=== PATIENT | female | born 1950 | race Caucasian/White ===

== ENCOUNTER 2021-12-31 07:58 | Observation (INO) ==
--- NOTE | 2021-12-10 13:52 | History & Physical Report ---
Date of Service December 10, 2021 date of surgery: 12/31/21 Procedure: Left Total Knee Arthroplasty Surgeon: Gabriel Almodovar Assessment & Plan (1) Arthritis of knee, left: Plan: Risks and benefits of procedure discussed in detail today, patient would like to proceed with a left total knee replacement at [facility] as scheduled. will obtain medical clearance from Dr Owusu and cardiac clearance from Dr Asencio prior to surgery as well as obtain PATs at [facility]. Will place on ASA 81mg po bid x 1 month post op, f/u 2 weeks post op for routine post-operative care and x-ray, sooner if having any problems. will make arrangements for HHPT at the time of discharge. At this point in time, has failed conservative measures and would like to proceed with surgical intervention. she is interested in OPJ if she is cleared by anesthesia. will schedule for Iovera treatment prior to the surgery. The risks and benefits have been discussed including, but not limited to, risk of infection, nerve injury, stiffness, loss of motion, failure to improve, etc. Reasonable outcomes and options of treatment were discussed. An explanation of appropriate alternatives to the procedure that may be advantageous were discussed and their risks and benefits, as well as the risks and benefits of not proceeding with treatment. I offered to answer any additional inquiries concerning the treatment involved. All the patient's questions were answered. The patient is agreeable, understanding of the treatment plan and alternatives, and wishes to proceed with the treatment plan. History of Present Illness Chief Complaint: left knee pain Primary Care Provider: MARY Bryan Nuha is a 71 year old female who complains of left knee pain, presents for pre-op evaluation prior to a left total knee replacement by Dr Almodovar at [facility]. She complains of pain, decreased range of motion, instability and stiffness in her left knee. Currently the patient states that the symptoms are moderate- severe and rated as 6/10. The pain is described as aching, sharp and throbbing. The symptoms are aggravated by ascending stairs, daily activities, first steps while awake walking. She is unable to take NSAIDs due to history of polycystic kidney disease. she has been treated with previous visco injections in the past without much relief. She had prior scope performed in 2016. Allergies Allergy/AdvReac Type Severity Reaction Status Date / Time NSAIDS (Non-Steroidal AdvReac poycystic Verified 12/13/21 16:07 Anti-Inflamma kidneys Home Medications Medication Instructions Recorded Confirmed Type calcium polycarbophil 625 mg 625 mg PO BID 08/11/21 08/11/21 History tablet (FiberCon) casanthranol-docusate sodium 30 1 cap PO QPM 08/11/21 08/11/21 History mg-100 mg capsule cholecalciferol (vitamin D3) 50 50 mcg PO BID 08/11/21 08/11/21 History mcg (2,000 unit) tablet (Vitamin D3) colesevelam 625 mg tablet 625 mg PO BID 08/11/21 08/11/21 History duloxetine 20 mg capsule,delayed 20 mg PO QPM 08/11/21 08/11/21 History release echinacea 400 mg capsule 400 mg PO QPM 08/11/21 08/11/21 History lactobacillus combo no.6 4 billion 4 cell PO QPM 08/11/21 08/11/21 History cell tablet omeprazole 20 mg tablet,delayed 20 mg PO QAM 08/11/21 08/11/21 History release propranolol 20 mg tablet 20 mg PO BID 08/11/21 08/11/21 History bempedoic acid 180 mg tablet 180 mg QAM 08/19/21 08/19/21 History (Nexletol) Past Med/Surg History Medical History Chronic sinusitis Ongoing x months - stable CVA (cerebral vascular accident) Questionable Incidental finding on imaging per patient Per cardio records "possible right putamen CVA" GERD (gastroesophageal reflux disease) Controlled and stable History of migraine Stable HLD (hyperlipidemia) HTN (hypertension) IBS (irritable bowel syndrome) No recent flares Osteoarthritis Polycystic kidney disease Follows with Dr. Dove in [place], [place] Stable per patient PONV (postoperative nausea and vomiting) Surgical History History of Achilles tendon repair BL History of arthroscopy of right knee History of cervical spinal surgery x 2; ROM WNL History of cholecystectomy History of colonoscopy History of esophagogastroduodenoscopy (EGD) History of lumbar fusion History of shoulder surgery Social History Smoking Status: Never smoker Second Hand Exposure: Yes (hx); Hx Alcohol Use: No Hx Substance Use: No Preferred Language: Kittitian Communication Ability: Effective Glass Etcher Required: No Beliefs That Will Affect Care: None Current Living Situation: Spouse Feels Safe at Home: Yes Assistive Devices: None Review of Systems Review of Systems: All systems reviewed & are unremarkable except as noted in HPI & below Constitutional: no fever, no chills and no sweats Respiratory: no cough and no dyspnea Cardiovascular: no chest pain, no dyspnea and no orthopnea Gastrointestinal: no abdominal pain, no nausea and no vomiting Musculoskeletal: as per Subjective / HPI Physical Exam Physical Exam: HT: 5'3" WT: 188lb BP: 152/83 Pulse: 62 Constitutional: WD/WN, vitals as above no acute distress Respiratory: normal respiratory effort, lungs clear to auscultation no respiratory distress, no labored breathing and does not use accessory muscles Cardiovascular: RRR, no murmur, no edema Gastrointestinal (Abdomen): normal bowel sounds, soft, nontender, no hepatosplenomegaly Musculoskeletal: Knee: + knee abnormal to inspection (LEFT KNEE: ), + effusion (+1 effusion), + surgical incision (well healed portals), + limited ROM of knee (ROM 0/3/110), + knee ROM with crepitation, + joint line tenderness (medial joint line) and + Michael's sign positive; no deformity, no skin erythema, no ecchymosis, no valgus laxity, no varus laxity, anterior drawer test negative, Aaron's sign negative and pivot shift test negative Results & Data Results & Data ([facility]) Diagnostic Findings Left Knee X-ray: left knee series confirm degenerative changes to the left knee, greatest medial compartments and patellofemoral joint, showing joint space narrowing, osteophyte formation and subchondral sclerosis. no acute bony pathology noted.
--- NOTE | 2021-12-26 13:52 | Anesthesiology Consultation ---
Date of Service December 26, 2021 Assessment & Plan (1) Encounter for pre-operative examination: Chart Review Chart Review: Acceptable Risk for Surgery and Patient NOT seen in Pre Admission Testing Consults Requested none History Surgery Operation Date: 12/31/21 09:50 Proposed Procedures p Left Total Knee Arthroplasty - Gabriel Almodovar DO Height/Weight Height: 5 ft 3 in Weight: 83.915 kg Allergies Allergy/AdvReac Type Severity Reaction Status Date / Time lisinopril AdvReac Unknown Cough Verified 12/26/21 11:52 NSAIDS (Non-Steroidal AdvReac Unknown poycystic Verified 12/26/21 11:51 Anti-Inflamma kidneys Medications Home Medications Medication Instructions Recorded Confirmed Last Taken calcium polycarbophil 625 mg 625 mg PO BID 08/11/21 12/26/21 Unknown tablet (FiberCon) casanthranol-docusate sodium 30 1 cap PO QPM 08/11/21 12/26/21 Unknown mg-100 mg capsule cholecalciferol (vitamin D3) 50 50 mcg PO BID 08/11/21 12/26/21 Unknown mcg (2,000 unit) tablet (Vitamin D3) colesevelam 625 mg tablet 625 mg PO TID 08/11/21 12/26/21 Unknown duloxetine 20 mg capsule,delayed 20 mg PO QPM 08/11/21 12/26/21 Unknown release echinacea 400 mg capsule 400 mg PO QPM PRN 08/11/21 12/26/21 Unknown lactobacillus combo no.6 4 billion 4 cell PO QPM 08/11/21 12/26/21 Unknown cell tablet omeprazole 20 mg tablet,delayed 20 mg PO QAM 08/11/21 12/26/21 Unknown release propranolol 20 mg tablet 20 mg PO BID 08/11/21 12/26/21 Unknown acetaminophen 500 mg tablet 500 - 1,000 mg PO Q6H PRN 12/26/21 12/26/21 Unknown fluticasone propionate 50 1 spray INTRANASAL Q12H PRN 12/26/21 12/26/21 Unknown mcg/actuation nasal spray,suspension Past Medical History Medical History Chronic sinusitis Ongoing x months - stable CVA (cerebral vascular accident) Questionable Incidental finding on imaging per patient Per cardio records "possible right putamen CVA"-NO CHANGES PER PT GERD (gastroesophageal reflux disease) Controlled and stable History of migraine Stable HLD (hyperlipidemia) HTN (hypertension) IBS (irritable bowel syndrome) No recent flares -NO CHANGES Osteoarthritis Polycystic kidney disease Follows with Dr. Dove in [place], [place] Stable per patient -NO CHANGES Past Family History Family History Father Family hx of colon cancer Past Surgical History Surgical History History of Achilles tendon repair BL History of arthroscopy of right knee History of cervical spinal surgery x 2; ROM WNL History of cholecystectomy History of colonoscopy 2020 History of esophagogastroduodenoscopy (EGD) History of lumbar fusion History of shoulder surgery PONV (postoperative nausea and vomiting) Social History Smoking Status: Never smoker Do You Dip or Chew Tobacco: No Hx Alcohol Use: No Hx Substance Use: No substance use type: does not use Testing Laboratory Results Laboratory Tests 08/18/21 08/18/21 08/18/21 14:30 14:30 14:30 WBC 5.94 Hgb 12.9 Plt Count 218 PT 10.5 INR 1.0 APTT 28.5 Sodium Potassium Chloride Carbon Dioxide BUN Creatinine Glucose Hemoglobin A1c 5.5 08/18/21 14:30 WBC Hgb Plt Count PT INR APTT Sodium 139 Potassium 4.5 Chloride 104 Carbon Dioxide 31 BUN 15 Creatinine 0.64 Glucose 93 Hemoglobin A1c Electrocardiogram Date: 08/18/21 Sinus bradycardia, rate 57 bpm Incomplete right bundle branch block Borderline ECG No previous ECGs available Confirmed by Terell Escobar ([id number]) on 08/21/2021 5:41:46 AM Chest X-Ray Date: 08/18/21 Findings: + NAD Echocardiogram Date: 04/11/21 LV cavity appears normal. EF 55-60%. Grade 1 diastolic dysfunction. Trace MR Estimated RVSP is 31 mmHg
[~2021-12-31 07:58] MED LIST: ACETAMINOPHEN 500 MG TAB PO SCH; BUPIVACAINE 0.25% 30 ML VIAL ONE; BUPIVACAINE 0.5 % 5 MG/1 ML PF 10ML VIAL ONE; DEXAMETHASONE SOD INJ 4 MG/ML VIAL ONE; EPINEPHrine INJ 1 MG/ML AMP ONE; FAMOTIDINE 20 MG TAB PO SCH; GABAPENTIN 300 MG CAP PO SCH; LR 500ML BOLUS IV SCH; METOCLOPRAMIDE HCL 10 MG TABLET PO SCH; ROPIVACAINE 0.5% HCL/PF 150 MG, BUPIVACAINE 0.75% MPF 20 ML, EPINEPHrine 30MG/30ML (OR ... INSTIL SCH; ceFAZolin 2000MG 2,000 MG/15 ML SYR IV SCH; dexAMETHasone 4 MG TAB PO SCH
--- NOTE | 2021-12-31 10:20 | History & Physical Bridge Note ---
Date of Service December 31, 2021 History & Physical Bridge Note I have examined the patient, reviewed the History & Physical and in the interval since the performance of the History & Physical I have noted the following changes of clinical significance: no changes noted
[2021-12-31] MEDS ORDERED: ATROPINE SULFATE 0.1 MG/ML 10ML SYR IV PRN (10:58)
[2021-12-31] MEDS ORDERED: ePHEDrine sulfate 50 MG/ML AMP IV PRN (10:58)
[2021-12-31] MEDS ORDERED: ONDANSETRON INJ 2 MG/ML 2 ML VIAL IV PRN ×2 (10:58→16:17)
[2021-12-31] MEDS ORDERED: fentaNYL citrate 100 MCG/2 ML VIAL IV PRN (10:58)
[2021-12-31] MEDS ORDERED: ORTHO JOINT ANESTHETIC ONE (11:00)
[2021-12-31] MEDS ORDERED: LIDOCAINE 2% 2 ML VIAL/AMP(20MG/ML) INFIL ONE (11:01)
[2021-12-31] MEDS ORDERED: ONDANSETRON INJ 2 MG/ML 2 ML VIAL ONE (11:01)
[2021-12-31] MEDS ORDERED: MIDAZOLAM HCL 1 MG/ML 2ML VIAL ONE (11:01)
[2021-12-31] MEDS ORDERED: PROPOFOL IV EMULSION 10 MG/ML 20 ML VIAL IV ONE (11:01)
[2021-12-31] MEDS: TRANEXAMIC ACID / 0.7% NACL 1000MG/100ML BAG IV ONE ×2 (11:36→11:40)
[2021-12-31] MEDS ORDERED: TRANEXAMIC ACID / 0.7% NACL 1,000 MG/100 ML BAG IV ONE ×2 (11:36)
--- NOTE | 2021-12-31 12:41 | Operative Report ---
Post Operative Report Pre & Post Diagnosis Operation Date: 12/31/21 10:45 Pre-Op Diagnosis: Left Knee Osteoarthritis Post-Op Diagnosis: Left Knee Osteoarthritis I identified the patient and participated in the time-out.: Yes Procedure Operation Date: 12/31/21 10:45 Actual Procedures p Left Total Knee Arthroplasty utilizing [employer] journey 2 patient matched total knee arthroplasty size femur 4 tibia to polynine patella 29 oval Gabriel Almodovar DO Surgeon Gabriel Almodovar DO License Inspector Callum FATIMA Estimated Blood Loss 5 Findings Consistent with Post-Op Diagnosis Severe DJD valgus alignment end-stage tricompartmental [id number] with subchondral sclerosis marginal osteophytes subchondral cystic changes moderate to large effusion Specimens Bone and cartilage Drains Medium bore Hemovac Anesthesia Type MAC Spinal Regional Complications none Disposition Accompanied Patient To Recovery: No Disposition: Recovery Room Indications Patient presents with severe end-stage DJD valgus alignment no response to conservative management clinic physical therapy anti-inflammatories relative rest activity modification corticosteroid injections viscosupplementation above intraoperative findings were noted Description of Procedure After proper prepping and draping of the left lower extremity anterior midline incision was made over the region of the extensor extensor mechanism after meticulous hemostasis was obtained and maintained in subcutaneous tissues a medial parapatellar incision was made The patella was subluxed lateralward the medial lateral gutter were cleaned from any hypertrophic synovitis and scar tissue of the distal femoral block was placed and the distal femoral osteotomy cut was made subsequently the chamfers anterior and posterior osteotomy cuts were made utilizing the 4-in-1 block the tibia was subsequently subluxed anteriorward medial and ateral meniscal remnants were excised in their entirety remnants of the anterior and posterior cruciate ligaments were excised in their entirety excellent exposure of the proximal tibia was obtained the tibial o steotomy guide was placed on the proximal tibial osteotomy cut was made once again the knee was irrigated with copious amounts of sterile saline solution the patella was subsequently everted lateralward thickened scar tissue around the patella was removed the patella was subsequently cut utilizing a freehand technique and was drilled prepared for final preparation and placement of patella socially flexion-extension gaps were checked and the equal and symmetric trials were placed to the appropriate femoral and tibial trials with poly-spacer being placed for equal flexion and extension gaps and full range of motion including extension to 0 and flexion to 140 the trial components after having been taken to recovery range of motion was subsequently removed meticulous hemostasis was obtained and maintained subsequently a knee block injection of joint cocktail including ropivacaine 0.5% 150 mg. Bupivacaine 0.5% epinephrine 1-200,030 mL's toradol 30 mg dexamethasone 4 mg ketamine 10 mg clonidine 100 micrograms normal saline solution 30 mg was infiltrated into the soft tissues of the posterior knee medial lateral gutters and periosteal synovium special attention was paid to protect neurovascular structures at all times subsequently trial components having been removed the knee was irrigated with sterile saline solution. debris was removed the proximal tibia was subsequently prepared and was made ready for the placement of the tibial component tibial component was also cemented and tamped into position the femoral component was subsequently placed and cemented in the position the patellar component was subsequently cemented in position because hemostasis once again obtained and maintained wound having been thoroughly irrigated with debridement and debridement lavage was performed as well as a medial parapatellar incision closed with #1 Vicryl in interrupted fashion subcutaneous was closed with #2 Vicryl skin was closed with skin clips. PA-C was necessary for prepping and drapping as well as wound closure of deep fascia Sub cutaneous tissue and skin and was necessary for the case. A sterile compressive dressing was placed patient was taken to recovery in stable condition of report dictated by Scooby I attest to the content of the Intraoperative Record and any orders documented therein. Any exceptions are noted below.Due to the complex nature of the p rocedure, the entire surgery was performed with the operational assistance of Callum FATIMA The dam tender assistant, under direct supervision, was involved in the actual performance of all aspects of the surgical procedure including hemostasis, tissue retraction and incision, instrument management, patient positioning, and wound closure. I attest to the content of the Intraoperative Record and any orders documented therein. Any exceptions are noted below.
--- NOTE | 2021-12-31 14:06 | XRay Report ---
LEFT KNEE 2 VIEWS History: Left total knee arthroplasty. Degenerative arthritis. Postop. FINDINGS: The patient is status post a left total knee arthroplasty. The hardware is intact. No fract ure or dislocation. Skin surgical drains are in place. IMPRESSION: Left total knee arthroplasty. No evidence for hardware complication. ACT 112: Negative or not required by law. Electronically signed by: Gallo Haider M.D. 12/31/2021 2:05 PM
--- NOTE | 2021-12-31 14:21 | Anesthesiology Progress Note ---
Date of Service December 31, 2021 Anesthesia Post Procedure Vital Signs Vital Signs: Temp Pulse Pulse Resp BP BP Pulse Ox 12/31/21 14:00 56 L 15 115/64 97 12/31/21 13:50 36.1 C L 58 L 15 118/65 97 12/31/21 13:40 58 L 14 121/68 121/68 98 12/31/21 13:30 63 15 110/76 97 12/31/21 13:23 36.1 C L 72 19 119/72 97 12/31/21 08:25 36.7 C 66 20 159/99 H 99 Transfer of Care Handoff Completed per policy Notes Mental Status: alert / awake / arousable Patient Amnestic to Procedure: Yes Nausea / Vomiting: adequately controlled Pain: adequately controlled Airway Patency, RR, SpO2: stable & adequate BP & HR: stable & adequate Hydration State: stable & adequate Neuraxial Anesthesia: was administered and sensory block is resolving Anesthetic Complications: no major complications apparent and Pt Satisfied with anesthetic care
--- NOTE | 2021-12-31 16:11 | Anesthesiology Progress Note ---
Date of Service December 31, 2021 Anesthesia Post Procedure Vital Signs Vital Signs: Temp Pulse Pulse Resp BP BP Pulse Ox 12/31/21 16:00 36.4 C L 74 16 105/63 95 12/31/21 15:30 80 22 107/68 96 12/31/21 15:00 64 20 109/66 97 12/31/21 14:45 69 14 117/65 94 12/31/21 14:30 71 15 111/69 92 12/31/21 14:15 61 15 109/70 95 12/31/21 14:00 56 L 15 115/64 97 12/31/21 13:50 36.1 C L 58 L 15 118/65 97 12/31/21 13:40 58 L 14 121/68 121/68 98 12/31/21 13:30 63 15 110/76 97 12/31/21 13:23 36.1 C L 72 19 119/72 97 12/31/21 08:25 36.7 C 66 20 159/99 H 99 Transfer of Care Handoff Completed per policy Notes Mental Status: alert / awake / arousable Patient Amnestic to Procedure: Yes Nausea / Vomiting: adequately controlled Pain: adequately controlled Airway Patency, RR, SpO2: stable & adequate BP & HR: stable & adequate Hydration State: stable & adequate Neuraxial Anesthesia: was administered and sensory block is resolving Anesthetic Complications: no major complications apparent and Pt Satisfied with anesthetic care
[2021-12-31] MEDS ORDERED: oxyCODONE HCL IR 5 MG TAB (IMMEDIATE RELEASE) PO PRN (16:17)
[2021-12-31] MEDS ORDERED: bisacodyL 10 MG SUPP PR PRN (16:17)
[2021-12-31] MEDS ORDERED: NALOXONE HCL 0.4 MG/1 ML VIAL/CARP IV PRN (16:17)
[2021-12-31] MEDS ORDERED: HYDROmorphone INJ 0.5 MG/0.5 ML SYR IV PRN (16:17)
[2021-12-31] MEDS ORDERED: diphenhydrAMINE 50 MG/ML VIAL IV PRN (16:17)
[2021-12-31] MEDS ORDERED: FLUTICASONE PROPIONATE NA SPR 16 GM BTL PRN (16:17)
[2021-12-31] MEDS ORDERED: MAGNESIUM HYDROXIDE SUSP 30 ML UDC PO PRN (16:17)
[2021-12-31] MEDS: ACETAMINOPHEN 500 MG TAB PO SCH ×2 (17:07→21:06)
[2021-12-31] MEDS: SODIUM CHLORIDE 0.9% 1000ML 1,000 ML IV SCH (17:08)
[2021-12-31] MEDS: ceFAZolin 2000MG 2,000 MG/15 ML SYR IV SCH (19:58)
[2021-12-31] MEDS ORDERED: SENNA 8.6 MG TAB PO SCH (21:00)
[2021-12-31] MEDS ORDERED: DULoxetine HCL 20 MG CAP PO SCH (21:00)
[2021-12-31] MEDS ORDERED: ADVANCED PROBIOTIC 1250 MG CAPSULE PO SCH (21:00)
[2021-12-31] MEDS: DOCUSATE SODIUM 100 MG CAP PO SCH (21:02)
[2021-12-31] MEDS: ASPIRIN 81 MG ECTAB PO SCH (21:03)
[2021-12-31] MEDS: PROPRANOLOL HCL 20 MG TAB PO SCH (21:04)
[2021-12-31] MEDS: CHOLECALCIFEROL 1,000 UNITS 25 MCG TAB PO SCH (21:06)
[2022-01-01] MEDS: ceFAZolin 2000MG 2,000 MG/15 ML SYR IV SCH (03:39)
[2022-01-01] MEDS: ACETAMINOPHEN 500 MG TAB PO SCH (06:02)
[2022-01-01] MEDS: SODIUM CHLORIDE 0.9% 1000ML 1,000 ML IV SCH (06:05)
[2022-01-01 07:09] LABS: Hematocrit (blood only) 33.5 % (37-47); Hemoglobin 11.2 g/dL (12.0-16.0); Mean Corpuscular Hemoglobin 30.4 pg (25-34); Mean Corpuscular Hgb Conc 33.4 g/dL (32-36); Mean Platelet Volume 10.6 fL (7.4-10.4); Platelet Count 244 K/uL (130-400); RDW Coefficient of Variation 13.5 % (11.5-14.5); RDW Standard Deviation 44.7 fL (36.4-46.3); Red Blood Count 3.68 M/uL (4.2-5.4); White Blood Count 15.83 K/uL (4.8-10.8)
[2022-01-01 07:19] LABS: Calcium 8.8 mg/dl (8.5-10.1); Est GFR (African American) 94.3 ml/min; Est GFR (Non-African American) 81.3 ml/min
--- NOTE | 2022-01-01 08:32 | Orthopedic Progress Note ---
Date of Service January 01, 2022 Assessment & Plan (1) Arthritis of knee, left: Plan: Postop day 1 status post left total knee arthroplasty. PT/OT protocols. Weightbearing as tolerated. DVT prophylaxis-aspirin p.o. twice daily, Gil, LAURENT mason. Pain management as written. DC planning-patient is planning for home health services upon discharge. Plan for possible discharge today if she is progressing with her physical therapy Admission and Anticipated Discharge Date Admission Date: December 31, 2021 Subjective Postop day 1 Pt sitting up in bed awake, alert. No complaints this AM. She did have pain near her drain site which is better this AM. Denies SOB, CP, LH. Pt is hoping to go home today. Physical Exam Physical Exam: Dressings are clean, dry, and intact. Calves are soft nontender. Neurovascular is intact. Toes are mobile. She has good d orsiflexion and plantarflexion of the left foot. Hemovac drainage was 100 mL from the previous shift. Results & Data ([facility]) Vital Signs (Past 12 Hours) Vital Signs Temp Pulse Resp BP BP Pulse Ox 01/01/22 07:25 37 C 66 16 118/70 100 01/01/22 06:04 129/73 01/01/22 03:38 37.0 C 69 15 99/60 L 97 12/31/21 22:17 37.0 C 59 L 15 117/69 95 12/31/21 21:01 71 104/65 Laboratory Results Laboratory Results WBC 15.83 K/uL (4.8-10.8) H 01/01/22 06:33 RBC 3.68 M/uL (4.2-5.4) L 01/01/22 06:33 Hgb 11.2 g/dL (12.0-16.0) L 01/01/22 06:33 Hct 33.5 % (37-47) L 01/01/22 06:33 MCV 91.0 fL (80-100) 01/01/22 06:33 MCH 30.4 pg (25-34) 01/01/22 06:33 MCHC 33.4 g/dL (32-36) 01/01/22 06:33 RDW Std Deviation 44.7 fL (36.4-46.3) 01/01/22 06:33 RDW Coeff of Den 13.5 % (11.5-14.5) 01/01/22 06:33 Plt Count 244 K/uL (130-400) 01/01/22 06:33 MPV 10.6 fL (7.4-10.4) H 01/01/22 06:33 Sodium 136 mmol/L (136-145) 01/01/22 06:33 Potassium 4.0 mmol/L (3.5-5.1) 01/01/22 06:33 Chloride 104 mmol/L (98-107) 01/01/22 06:33 Carbon Dioxide 26 mmol/L (21-32) 01/01/22 06:33 Anion Gap 6 (3-11) 01/01/22 06:33 BUN 21 mg/dl (6-23) 01/01/22 06:33 Creatinine 0.75 mg/dl (0.6-1.2) 01/01/22 06:33 Est Cr Clr Drug Dosing 73.0 ml/min 01/01/22 06:33 Est GFR ( Amer) 94.3 ml/min 01/01/22 06:33 Est GFR (Non-Af Amer) 81.3 ml/min 01/01/22 06:33 BUN/Creatinine Ratio 28.0 (10-20) H 01/01/22 06:33 Glucose 119 mg/dl (70-99(Fasting)) H 01/01/22 06:33 Calcium 8.8 mg/dl (8.5-10.1) 01/01/22 06:33 SARS-CoV-2, RNA, NAAT NEGATIVE (NEGATIVE) 12/31/21 08:23 Blood Type O Positive 12/31/21 09:27 Antibody Screen NEGATIVE 12/31/21 09:27 Impressions Knee X-Ray 12/31/21 13:49 LEFT KNEE 2 VIEWS History: Left total knee arthroplasty. Degenerative arthritis. Postop. FINDINGS: The patient is status post a left total knee arthroplasty. The hardware is intact. No fracture or dislocation. Skin surgical drains are in place. IMPRESSION: Left total knee arthroplasty. No evidence for hardware complication. ACT 112: Negative or not required by law. Electronically signed by: Gallo Haider M.D. 12/31/2021 2:05 PM
[2022-01-01] MEDS: PROPRANOLOL HCL 20 MG TAB PO SCH (08:56)
[2022-01-01] MEDS: ASPIRIN 81 MG ECTAB PO SCH (08:56)
[2022-01-01] MEDS: DOCUSATE SODIUM 100 MG CAP PO SCH (08:56)
[2022-01-01] MEDS: CHOLECALCIFEROL 1,000 UNITS 25 MCG TAB PO SCH (08:56)
[2022-01-01] MEDS ORDERED: MULTIVITAMIN TAB PO SCH (09:00)
--- NOTE | 2022-01-02 15:20 | Discharge Summary ---
Date of Service January 02, 2022 Admission HPI Per Admitting Provider Lavinia is a 71 year old female who complains of left knee pain, presents for pre- op evaluation prior to a left total knee replacement by Dr Almodovar at [facility]. She complains of pain, decreased range of motion, instability and stiffness in her left knee. Currently the patient states that the symptoms are moderate-severe and rated as 6/10. The pain is described as aching, sharp and throbbing. The symptoms are aggravated by ascending stairs, daily activities, first steps while awake walking. She is unable to take NSAIDs due to history of polycystic kidney disease. she has been treated with previous visco injections in the past without much relief. She had prior scope performed in 2016. Admission Exam Per Admitting Provider Physical Exam: HT: 5'3" WT: 188lb BP: 152/83 Pulse: 62 Constitutional: WD/WN, vitals as above no acute distress Respiratory: normal respiratory effort, lungs clear to auscultation no respiratory distress, no labored breathing and does not use accessory muscles Cardiovascular: RRR, no murmur, no edema Gastrointestinal (Abdomen): normal bowel sounds, soft, nontender, no hepatosplenomegaly Musculoskeletal: Knee: + knee abnormal to inspection (LEFT KNEE: ), + effusion (+1 effusion), + surgical incision (well healed portals), + limited ROM of knee (ROM 0/3/110), + knee ROM with crepitation, + joint line tenderness (medial joint line) and + Michael's sign positive; no deformity, no skin erythema, no ecchymosis, no valgus laxity, no varus laxity, anterior drawer test negative, Aaron's sign negative and pivot shift test negative Principal Diagnosis Left knee osteoarthritis Discharge Data Allergies Allergy/AdvReac Type Severity Reaction Status Date / Time lisinopril AdvReac Unknown Cough Verified 12/31/21 08:35 NSAIDS (Non-Steroidal AdvReac Unknown poycystic Verified 12/31/21 08:35 Anti-Inflamma kidneys Procedures Performed Operation Date: 12/31/21 10:45 Actual Procedures p Left Total Knee Arthroplasty(Left) - Gabriel Almodovar DO Ordered Studies 12/31/21 05:00 US - OR guided needle placemen Routine Hospital Course (1) Arthritis of knee, left: [facility], [id number] Orthopedic Progress Note Signed Patient:LAVINIA COLLIER Admit Date:12/31/21 MR#:[id number] Att Phy:Gabriel Almodovar D.O. Acct ID:[id number] Geena Phy:Oriana Owusu CRNP Date:1950 Fam Phy: Age:71 Location:3E Sex:F Room/Bed:[facility] cc: ~ *NOTICE TO RECEIVING LIBERTARIAN/AGENCY This information is strictly Confidential and protected under [place] law. [place] law prohibits you from louann ing any further disclosure of this information unless further disclosure is expressly permitted by the written consent of the person to whom it pertains or is authorized by law. A general authorization for the release of medical or other information is not sufficient for this purpose. Hospital accepts no responsibility if the information is made available to any other person, INCLUDING THE PATIENT. Date of Service January 01, 2022 Assessment & Plan (1) Arthritis of knee, left: Plan: Postop day 1 status post left total knee arthroplasty. PT/OT protocols. Weightbearing as tolerated. DVT prophylaxis-aspirin p.o. twice daily, SCDs, LAURENT luise. Pain management as written. DC planning-patient is planning for home health services upon discharge. Plan for possible discharge today if she is progressing with her physical therapy Admission and Anticipated Discharge Date Admission Date: December 31, 2021 Subjective Postop day 1 Pt sitting up in bed awake, alert. No complaints this AM. She did have pain near her drain site which is better this AM. Denies SOB, CP, LH. Pt is hoping to go home today. Physical Exam Physical Exam: Dressings are clean, dry, and intact. Calves are soft nontender. Neurovascular is intact. Toes are mobile. She has good dorsiflexion and plantarflexion of the left foot. Hemovac drainage was 100 mL from the previous shift. Results & Data ([facility]) Vital Signs (Past 12 Hours) Vital Signs Temp Pulse Resp BP BP Pulse Ox 01/01/22 07:25 37 C 66 16 118/70 100 C 01/01/22 06:04 129/73 01/01/22 03:38 37.0 C 69 15 99/60 L 97 12/31/21 22:17 37.0 C 59 L 15 117/69 95 12/31/21 21:01 71 104/65 Laboratory Results Laboratory Results WBC 15.83 K/uL (4.8-10.8) H 01/01/22 06:33 RBC 3.68 M/uL (4.2-5.4) L 01/01/22 06:33 Hgb 11.2 g/dL (12.0-16.0) L 01/01/22 06:33 Hct 33.5 % (37-47) L 01/01/22 06:33 MCV 91.0 fL (80-100) 01/01/22 06:33 MCH 30.4 pg (25-34) 01/01/22 06:33 MCHC 33.4 g/dL (32-36) 01/01/22 06:33 RDW Std Deviation 44.7 fL (36.4-46.3) 01/01/22 06:33 RDW Coeff of Den 13.5 % (11.5-14.5) 01/01/22 06:33 D Plt Count 244 K/uL (130-400) 01/01/22 06:33 MPV 10.6 fL (7.4-10.4) H 01/01/22 06:33 Sodium 136 mmol/L (136-145) 01/01/22 06:33 Potassium 4.0 mmol/L (3.5-5.1) 01/01/22 06:33 Chloride 104 mmol/L (98-107) 01/01/22 06:33 Carbon Dioxide 26 mmol/L (21-32) 01/01/22 06:33 Anion Gap 6 (3-11) 01/01/22 06:33 BUN 21 mg/dl (6-23) 01/01/22 06:33 Creatinine 0.75 mg/dl (0.6-1.2) 01/01/22 06:33 Est Cr Clr Drug Dosing 73.0 ml/min 01/01/22 06:33 Est GFR ( Amer) 94.3 ml/min 01/01/22 06:33 Est GFR (Non-Af Amer) 81.3 ml/min 01/01/22 06:33 BUN/Creatinine Ratio 28.0 (10-20) H 01/01/22 06:33 Glucose 119 mg/dl (70-99(Fasting)) H 01/01/22 06:33 Calcium 8.8 mg/dl (8.5-10.1) 01/01/22 06:33 SARS-CoV-2, RNA, NAAT NEGATIVE (NEGATIVE) 12/31/21 08:23 Blood Type O Positive 12/31/21 09:27 Antibody Screen NEGATIVE 12/31/21 09:27 Impressions Knee X-Ray 12/31/21 13:49 LEFT KNEE 2 VIEWS History: Left total knee arthroplasty. Degenerative arthritis. Postop. FINDINGS: The patient is status post a left total knee arthroplasty. The hardware is intact. No fracture or dislocation. Skin surgical drains are in place. IMPRESSION: Left total knee arthroplasty. No evidence for hardware complication. ACT 112: Negative or not required by law. Electronically signed by: Gallo Haider M.D. 12/31/2021 2:05 PM Total Time Total Time Spent Total Time Spent (In Minutes): 5 Discharge Plan Discharge Items Patient Disposition: Home - Home Health Services Reason For Visit: Left Knee Osteoarthritis Discharge Diagnosis: Left knee osteoarthritis Activity: Per Instructions section Weightbearing: Left weightbearing Weightbearing Comment: As tolerated with walker Non-emergency contact: Surgeon Call non-emergency contact if: your pain is not controlled, your temperature is above 101.5, your wound has increased redness and your wound has increased drainage Follow-up/Referrals: Gabriel Almodovar DO [Surgeon] - (Follow-up in 14 days for your first postoperative visit.) Oriana Owusu CRNP [Primary Care Provider] - Diet: Regular Addtl Attending Provider Instructions: ACTIVITY RECOMMENDATIONS: SELF CARE INSTRUCTIONS AFTER TOTAL KNEE REPLACEMENT A. You may need to continue a physical therapy program after discharge from the hospital. There are several options available to you. Your doctor will assist you in selecting the best one for you. 1. An out-patient facility 2 to 3 times a week for therapy or home therapy. 2. Continue working on all exercises taught to you in the hospital. Your goals should be to increase bending of your knee to 90 degrees and beyond and to fully straighten your knee. B. You may progress at your own pace from walking with a walker or crutches to a cane; then to no assistive devices. C. Make walking a part of your daily routine. Be up as much as comfortable with rest periods throughout the day. Rest with leg elevation is very important. Use the ice wrap frequently for the first 3-4 weeks. D. There are no restrictions on activities. You may ride in a car, shop, participate in warranty clerk and all social activities. E. Wear the long elastic stockings (LAURENT hose) 20 hours a day for 2 weeks after surgery. They can be removed several times a day for laundering and for a bath. F. You may shower, no tub baths until cleared by your doctor. SPECIAL CARE INSTRUCTIONS: VERY IMPORTANT TO READ AND REVIEW A. There are a few signs you need to watch for after you are home. Call [facility] if you notice any of the followin. Increased severe knee pain. Some pain is expected especially when you exercise. 2. Increased swelling in your leg or knee; pain or swelling of the calf muscle in either lower leg. 3. Any fluid drainage from the incision. 4. Shortness of breath or chest pain. B. Please call [facility] at if you have any concerns or questions about your operation or recovery. The doctor or his nurse will return your call promptly. C. You must take antibiotics before dental work, bladder, bowel or other surgery. Your doctor will provide you with a permanent care to carry describing this precaution. IMPORTANT: * REMEMBER TO TAKE ASPIRIN, 81 MG, TWICE DAILY FOR 4 WEEKS UNLESS OTHERWISE DIRECTED. THIS IS YOUR BLOOD THINNER. * HIGH RISK PATIENTS MAY BE PRESCRIBED A STRONGER BLOOD THINNER. THIS WILL BE PROVIDED AT DISCHARGE. * CALL IF INCREASED PAIN, REDNESS, DRAINAGE OR FEVER GREATER THAT 101. * WEAR LAURENT HOSE 20 HOURS PER DAY FOR 2 WEEKS. * Hope Dressing - This is a large suction dressing covering your incision. This will help pull any excess drainage from the wound and allow your incision to heal properly. You may shower with this if you can keep the unit outside of the shower. If any bleeding or leakage is noted please call your doctor's office. This will remain on your incision for 7 days and then should be removed. This can be done yourself or by the home nursing staff if applicable. The entire unit is disposable once removed. Once removed, keep incision clean and dry. If redness or drainage is noted, please call your surgeon. . After your hope dressing has been removed, please follow the instructions below. * DERMABOND Prineo- This is a mesh tape dressing that is covered with glue. It should remain in place until the incision is properly healed, usually 10-14 days. This dressing is designed to naturally slough off. You may trim the excess mesh tape as it peels off. Incision may be briefly wet in a shower. Dry immediately by blotting with a clean, dry towel. Do not bath or swim until instructed by your doctor. Do not scratch, rub, or pick at the dressing. Do no t apply any topical ointments or lotions until dressing is completely removed and/or instructed by your doctor. There may be a small piece of suture material at one end of your incision. Do not pull or trim this. If it is bothersome or catching on clothing, you may cover it with a band-aid. FOLLOW UP VISIT: If appointment is not already scheduled: Please call [facility] to make a follow-up appointment for 2 weeks after your surgery at . Stand-Alone Forms: My [facility] [place] [employer], Smoking Cessation Medications and DC Order Prescriptions: New aspirin 81 mg Tablet,Delayed Release (Dr/Ec) 81 mg PO BID 30 Days Qty: 60 RF: 0 acetaminophen [Tylenol Extra Strength] 500 mg Tablet 1,000 mg PO Q8 14 Days Qty: 84 RF: 0 polyethylene glycol 3350 [Miralax] 17 gram powder in packet 17 g PO DAILY PRN (Reason: constipation) Qty: 5 RF: 0 cefadroxil 500 mg capsule 500 mg PO BID Qty: 28 RF: 1 oxycodone 5 mg Tablet 5 mg PO Q4H MDD 6 PRN (Reason: pain) Qty: 30 RF: 0 Continued casanthranol-docusate sodium 30-100 mg Capsule 1 cap PO QPM RF: 0 colesevelam 625 mg Tablet 625 mg PO TID RF: 0 propranolol 20 mg Tablet 20 mg PO BID RF: 0 duloxetine 20 mg Capsule,Delayed Release(Dr/Ec) 20 mg PO QPM RF: 0 omeprazole 20 mg Tablet,Delayed Release (Dr/Ec) 20 mg PO QAM RF: 0 cholecalciferol (vitamin D3) [Vitamin D3] 50 mcg (2,000 unit) Tablet 50 mcg PO BID RF: 0 lactobacillus combo no.6 4 billion cell Tablet 4 cell PO QPM RF: 0 calcium polycarbophil [FiberCon] 625 mg Tablet 625 mg PO BID RF: 0 fluticasone propionate 50 mcg/actuation [place],Suspension 1 spray INTRANASAL Q12H PRN (Reason: Congestion) RF: 0 Discontinued echinacea 400 mg Capsule 400 mg PO QPM PRN (Reason: Other) RF: 0 acetaminophen [Tylenol Ex Str Rapid Release] 500 mg Tablet 500 - 1,000 mg PO Q6H PRN (Reason: Pain) RF: 0 Discharge Orders: Discharge Order (Routine); Ordered 01/01/22 Ordered By: Callum Castillo/Other Patient Handouts: Knee Osteoarthritis Admission Data Admit Date/Time: 12/31/21 13:49 Attending Provider: Gabriel Almodovar Admit Provider: Gabriel Almodovar Primary Care Provider: Oriana Owusu Other Interventions: Discharge Summary Assessment (RN) Last Done: 01/01/22 11:01
== END 2022-01-01 12:11 | disposition home health service (06) ==
LOC: PACUINP 07:58 → ASU 07:58 → 3E 16:21
DX: M25.762 Osteophyte, left knee; I10 Essential (primary) hypertension; M25.162 Fistula, left knee; K21.9 Gastro-esophageal reflux disease without esophagitis; M17.12 Unilateral primary osteoarthritis, left knee; M25.462 Effusion, left knee